=== PATIENT | female | born 1980 | race Hispanic/Latino ===

== ENCOUNTER 2022-04-18 15:23 | Inpatient (IN) | payer OTHER ==
[~2022-04-18] VITALS: Ht 162.6 cm; Wt 76.4 kg
[2022-04-18] MEDS ORDERED: MORPHINE 4 MG SYG IVP ONE (16:00)
[2022-04-18] MEDS ORDERED: ONDANSETRON 4MG INJ IVP ONE (16:00)
[2022-04-18] MEDS ORDERED: ZOSYN 3.375GM +NS 50ML IV SCH (16:00)
[2022-04-18] MEDS ORDERED: VANCOMYCIN 1G VIAL IVPB ONE (16:00)
[2022-04-18] MEDS ORDERED: VANCOMYCIN 1G/250ML KIT 250 ML IV ONE (16:09)
[2022-04-18 16:15] LABS: BASOPHILS % (AUTO) 0.3 % (0.0-5.0); EOSINOPHILS % (AUTO) 0.3 % (0.0-8.0); HEMATOCRIT 40.6 % (36-48); LYMPHOCYTES % (AUTO) 12.8 % (21.0-51.0); MEAN CORPUSCULAR HEMOGLOBIN 30.1 pg (27.0-33.0); MEAN CORPUSCULAR HGB CONC 35.5 g/dL (32.0-36.0); MEAN CORPUSCULAR VOLUME 84.8 fL (79-99); MONOCYTES % (AUTO) 7.6 % (3.0-13.0); NEUTROPHILS % (AUTO) 78.2 % (40.0-77.0); PLATELET COUNT (AUTO) 242 K/uL (130-400); RED BLOOD CELL COUNT(AUTO) 4.79 MIL/uL (4.00-5.50); RED CELL DISTRIBUTION WIDTH 11.8 % (11.0-15.5); WHITE BLOOD COUNT (AUTO) 14.2 K/uL (4.8-10.8)
[2022-04-18 16:18] LABS: APPEARANCE,URINE Clear (CLEAR); BILIRUBIN,URINE Negative (NEGATIVE); COLOR,URINE Yellow (YELLOW); GLUCOSE, URINE (UA) >=1000 mg/dL (NEGATIVE); KETONES,URINE >=160 mg/dL (NEGATIVE); LEUKOCYTE ESTERASE ,URINE Negative (NEGATIVE); NITRATE,URINE Negative (NEGATIVE); OCCULT BLOOD,URINE Negative (NEGATIVE); PH,URINE 5.5 (5.0-8.0); PROTEIN,URINE Negative (NEGATIVE); UROBILINOGEN,URINE 0.2 mg/dL (0.2-1.0)
[2022-04-18] MEDS ORDERED: INSULIN HUMULIN R 100 UNIT/ML 3ML SQ ONE (16:30)
[2022-04-18] MEDS ORDERED: 0.9%NACL 1000ML 1,000 ML IV SCH (16:30)
[2022-04-18 16:42] LABS: ALBUMIN 3.4 g/dL (3.5-5.0); CREATININE 0.8 mg/dL (0.5-1.5); POTASSIUM 3.1 mmol/L (3.5-5.1); TOTAL PROTEIN, SERUM 8.4 g/dL (6.0-8.3)
[2022-04-18] MEDS ORDERED: IOHEXOL 350 MG/ML 100ML INFUS..BTL IV ONE (16:57)
[2022-04-18 17:01] LABS: CRP QUANTITATIVE 185.7 mg/L (0.00-9.0)
[2022-04-18 17:21] LABS: BACTERIA,URINE Few /HPF (None Seen); RBC,URINE 0-1 /HPF (0-1); SQUAMOUS EPITHELIAL CELL,UR Moderate /HPF (0-2)
[2022-04-18] MEDS: 0.9%NACL 1000ML 1,000 ML IV SCH (18:00)
[2022-04-18] MEDS ORDERED: MORPHINE 2 MG SYG IV PRN (20:00)
[2022-04-18] MEDS: VANCOMYCIN 1G/250ML KIT 250 ML IV SCH (20:00)
[2022-04-18] MEDS ORDERED: VANCOMYCIN PROTOCOL PER PHARMACY IV PRN (20:00)
[2022-04-18] MEDS: ZOSYN 3.375GM+NS 50ML 50 ML IV SCH (20:30)
[2022-04-18] MEDS: LACTATED RINGERS 1000ML 1,000 ML IV SCH (21:35)
[2022-04-18] MEDS: FAMOTIDINE 20MG VIAL IV SCH (21:35)
[2022-04-18] MEDS: MORPHINE 4 MG SYG IV PRN (21:40)
[2022-04-18] MEDS ORDERED: POTASSIUM CHLORIDE 10% ELIXIR 20 MEQ/15 ML UDCUP PO PRN (23:00)
[2022-04-18] MEDS ORDERED: POTASSIUM CHLORIDE 20MEQ/100ML 100 ML IV PRN (23:00)
[2022-04-18] MEDS ORDERED: LIDOCAINE HCL-MPF 1% 2ML VIAL IV PRN (23:00)
[2022-04-19] MEDS: 0.9%NACL 1000ML 1,000 ML IV SCH (02:00)
[2022-04-19 05:12] LABS: BASOPHILS % (AUTO) 0.3 % (0.0-5.0); EOSINOPHILS % (AUTO) 0.8 % (0.0-8.0); LYMPHOCYTES % (AUTO) 15.8 % (21.0-51.0); MEAN CORPUSCULAR HEMOGLOBIN 29.7 pg (27.0-33.0); MEAN CORPUSCULAR HGB CONC 34.7 g/dL (32.0-36.0); MEAN CORPUSCULAR VOLUME 85.6 fL (79-99); MONOCYTES % (AUTO) 9.1 % (3.0-13.0); NEUTROPHILS % (AUTO) 73.4 % (40.0-77.0); PLATELET COUNT (AUTO) 217 K/uL (130-400); RED BLOOD CELL COUNT(AUTO) 4.44 MIL/uL (4.00-5.50); RED CELL DISTRIBUTION WIDTH 11.9 % (11.0-15.5); WHITE BLOOD COUNT (AUTO) 15.6 K/uL (4.8-10.8)
[2022-04-19] MEDS: ZOSYN 3.375GM+NS 50ML 50 ML IV SCH ×3 (05:19→20:52)
[2022-04-19 05:23] LABS: INR 1.07 (0.85-1.15); PROTHROMBIN TIME 11.6 SEC (9.6-11.6)
[2022-04-19 05:25] LABS: PARTIAL THROMBOPLASTIN TIME 27.2 SEC (26.3-35.5)
[2022-04-19 05:29] LABS: CREATININE 0.6 mg/dL (0.5-1.5); MAGNESIUM 1.7 mg/dL (1.80-2.40); PHOSPHORUS 2.8 mg/dL (2.5-4.9); POTASSIUM 3.7 mmol/L (3.5-5.1)
[2022-04-19 05:37] LABS: HEMOGLOBIN A1C 10.9 % (4.0-6.0)
[2022-04-19] MEDS: VANCOMYCIN 1G/250ML KIT 250 ML IV SCH (08:00)
[2022-04-19] MEDS: FAMOTIDINE 20MG VIAL IV SCH ×2 (08:00→20:53)
[2022-04-19] MEDS ORDERED: GLUCAGON 1MG KIT 1 MG ML IM PRN (09:00)
[2022-04-19] MEDS: LACTATED RINGERS 1000ML 1,000 ML IV SCH ×2 (09:00→16:00)
[2022-04-19] MEDS ORDERED: DEXTROSE 50%-WATER 50 ML DISP.SYRIN IV PRN (09:00)
[2022-04-19] MEDS: MORPHINE 4 MG SYG IV PRN (11:18)
[2022-04-19 12:33] VITALS: BP 102/44
[2022-04-19] MEDS: INSULIN HUMULIN R 100 UNIT/ML 3ML SQ SCH ×3 (14:27→23:43)
[2022-04-19] MEDS ORDERED: IBUP-2077 PO (14:46)
[2022-04-19 16:16] VITALS: BP 121/57
[2022-04-19] MEDS: ONDANSETRON 4MG INJ IV PRN ×2 (16:20→20:52)
[2022-04-19 19:00] VITALS: BP 120/59
[2022-04-19] MEDS: VANCOMYCIN 1.5 GM/250 ML BAG 250 ML IV SCH (20:53)
[2022-04-20] VITALS: BP 113/60
[2022-04-20 04:00] VITALS: BP 108/58
[2022-04-20] MEDS: VANCOMYCIN 1.5 GM/250 ML BAG 250 ML IV SCH ×2 (05:19→14:30)
[2022-04-20] MEDS: ZOSYN 3.375GM+NS 50ML 50 ML IV SCH ×3 (05:19→21:40)
[2022-04-20] MEDS: LACTATED RINGERS 1000ML 1,000 ML IV SCH ×3 (05:20→22:00)
[2022-04-20] MEDS: ONDANSETRON 4MG INJ IV PRN (05:32)
[2022-04-20] MEDS: MORPHINE 4 MG SYG IV PRN ×2 (05:33→21:37)
[2022-04-20 05:59] LABS: BASOPHILS % (AUTO) 0.3 % (0.0-5.0); EOSINOPHILS % (AUTO) 0.2 % (0.0-8.0); HEMATOCRIT 36.4 % (36-48); LYMPHOCYTES % (AUTO) 19.4 % (21.0-51.0); MEAN CORPUSCULAR HEMOGLOBIN 29.8 pg (27.0-33.0); MEAN CORPUSCULAR HGB CONC 34.6 g/dL (32.0-36.0); MEAN CORPUSCULAR VOLUME 86.1 fL (79-99); MONOCYTES % (AUTO) 8.3 % (3.0-13.0); NEUTROPHILS % (AUTO) 70.9 % (40.0-77.0); PLATELET COUNT (AUTO) 238 K/uL (130-400); RED BLOOD CELL COUNT(AUTO) 4.23 MIL/uL (4.00-5.50); RED CELL DISTRIBUTION WIDTH 11.9 % (11.0-15.5); WHITE BLOOD COUNT (AUTO) 16.6 K/uL (4.8-10.8)
[2022-04-20] MEDS: INSULIN HUMULIN R 100 UNIT/ML 3ML SQ SCH ×2 (06:00→12:00)
[2022-04-20 06:05] LABS: CREATININE 0.6 mg/dL (0.5-1.5)
[2022-04-20] MEDS: LIDOCAINE HCL-MPF 1% 2ML VIAL IV PRN (07:05)
[2022-04-20] MEDS: POTASSIUM CHLORIDE 20MEQ/100ML 100 ML IV PRN (07:05)
[2022-04-20 07:45] VITALS: BP 110/53
[2022-04-20] MEDS: FAMOTIDINE 20MG VIAL IV SCH ×2 (10:22→21:37)
[2022-04-20 11:40] VITALS: BP 128/73
[2022-04-20 15:35] VITALS: BP 142/74
[2022-04-20 19:00] VITALS: BP 134/69
[2022-04-20] MEDS ORDERED: VANCOMYCIN 750MG VIAL IVPB SCH (20:00)
[2022-04-20] MEDS ORDERED: 0.9% NACL 250ML 250 ML IV SCH (20:00)
[2022-04-21] VITALS (27 sets, daily range): BP systolic 97–154; BP diastolic 44–84
[2022-04-21] MEDS ORDERED: MIDAZOLAM HCL 1 MG/ML 2ML VIAL ONE (00:11)
[2022-04-21] MEDS ORDERED: PROPOFOL 10 MG/ML 20ML VIAL IV ONE (00:11)
[2022-04-21] MEDS ORDERED: FENTANYL CITRATE PF 50 MCG/1 ML 2ML VIAL ONE (00:11)
[2022-04-21] MEDS ORDERED: SUCCINYLCHOLINE 200MG/10ML SYR ONE (00:11)
[2022-04-21] MEDS ORDERED: ROCURONIUM 10MG/1ML SYR 10 MG/ML ML ONE (00:11)
[2022-04-21] MEDS ORDERED: MEPERIDINE-PF 25 MG/ML SYG ONE ×3 (00:18→01:36)
[2022-04-21] MEDS ORDERED: ONDANSETRON 4MG INJ ONE (00:19)
[2022-04-21 05:13] LABS: BASOPHILS % (AUTO) 0.4 % (0.0-5.0); EOSINOPHILS % (AUTO) 0.1 % (0.0-8.0); LYMPHOCYTES % (AUTO) 10.6 % (21.0-51.0); MEAN CORPUSCULAR HEMOGLOBIN 30.1 pg (27.0-33.0); MEAN CORPUSCULAR HGB CONC 34.1 g/dL (32.0-36.0); MEAN CORPUSCULAR VOLUME 88.5 fL (79-99); MONOCYTES % (AUTO) 8.9 % (3.0-13.0); PLATELET COUNT (AUTO) 238 K/uL (130-400); RED BLOOD CELL COUNT(AUTO) 4.18 MIL/uL (4.00-5.50); RED CELL DISTRIBUTION WIDTH 11.9 % (11.0-15.5); WHITE BLOOD COUNT (AUTO) 16.7 K/uL (4.8-10.8)
[2022-04-21] MEDS: ZOSYN 3.375GM+NS 50ML 50 ML IV SCH ×3 (05:27→23:14)
[2022-04-21 05:36] LABS: CREATININE 0.5 mg/dL (0.5-1.5); POTASSIUM 3.9 mmol/L (3.5-5.1)
[2022-04-21] MEDS: INSULIN HUMULIN R 100 UNIT/ML 3ML SQ SCH ×5 (05:56→21:00)
[2022-04-21] MEDS: LACTATED RINGERS 1000ML 1,000 ML IV SCH ×2 (08:00→17:45)
[2022-04-21] MEDS ORDERED: VANCOMYCIN 1.75GM/250ML NS IV SCH ×2 (08:30)
[2022-04-21] MEDS: FAMOTIDINE 20MG VIAL IV SCH ×2 (10:08→23:19)
[2022-04-21] MEDS: MORPHINE 4 MG SYG IV PRN (10:08)
[2022-04-21] MEDS: ONDANSETRON 4MG INJ IV PRN ×2 (17:57→23:19)
[2022-04-21] MEDS: VANCOMYCIN 1G/250ML KIT 250 ML IV SCH (23:19)
[2022-04-22] VITALS: BP 142/68
[2022-04-22 04:00] VITALS: BP 124/63
[2022-04-22] MEDS: LACTATED RINGERS 1000ML 1,000 ML IV SCH (04:00)
[2022-04-22] MEDS: ZOSYN 3.375GM+NS 50ML 50 ML IV SCH ×2 (04:54→12:32)
[2022-04-22 05:12] LABS: BASOPHILS % (AUTO) 0.4 % (0.0-5.0); EOSINOPHILS % (AUTO) 0.5 % (0.0-8.0); HEMATOCRIT 35.2 % (36-48); LYMPHOCYTES % (AUTO) 21.5 % (21.0-51.0); MEAN CORPUSCULAR HEMOGLOBIN 29.2 pg (27.0-33.0); MEAN CORPUSCULAR HGB CONC 34.4 g/dL (32.0-36.0); MEAN CORPUSCULAR VOLUME 84.8 fL (79-99); MONOCYTES % (AUTO) 8.4 % (3.0-13.0); NEUTROPHILS % (AUTO) 68.3 % (40.0-77.0); PLATELET COUNT (AUTO) 268 K/uL (130-400); RED BLOOD CELL COUNT(AUTO) 4.15 MIL/uL (4.00-5.50); RED CELL DISTRIBUTION WIDTH 11.9 % (11.0-15.5); WHITE BLOOD COUNT (AUTO) 12.9 K/uL (4.8-10.8)
[2022-04-22] MEDS: INSULIN HUMULIN R 100 UNIT/ML 3ML SQ SCH ×3 (05:32→17:59)
[2022-04-22] MEDS: VANCOMYCIN 1G/250ML KIT 250 ML IV SCH (05:44)
[2022-04-22 05:45] LABS: CREATININE 0.5 mg/dL (0.5-1.5)
[2022-04-22 05:52] LABS: POTASSIUM 2.9 mmol/L (3.5-5.1)
[2022-04-22] MEDS: KCL 20 MEQ ERTAB PO PRN ×4 (06:33→15:11)
[2022-04-22 08:00] VITALS: BP 125/71
[2022-04-22] MEDS: FAMOTIDINE 20MG VIAL IV SCH (08:05)
[2022-04-22 12:00] VITALS: BP 116/63
[2022-04-22] MEDS ORDERED: AMOX1TAB16 PO (13:19)
[2022-04-22] MEDS ORDERED: METF-446 PO (13:21)
[2022-04-22] MEDS: POTASSIUM CHLORIDE 20MEQ/100ML 100 ML IV PRN (15:12)
[2022-04-22] MEDS: LIDOCAINE HCL-MPF 1% 2ML VIAL IV PRN (15:12)
[2022-04-22 16:00] VITALS: BP 127/80
== END 2022-04-22 21:00 | disposition home or self-care (01) | DRG 345 ==
LOC: EDH 15:23 → EDHIP 15:24 → 3DH 04-19 08:52
PROVIDERS: ADMIT Internal Medicine; ATTEND Internal Medicine
PROC: 0D9P0ZZ Drainage of Rectum, Open Approach (ICD-10-PCS; principal; 2022-04-21 00:53)
DX: K61.1 Rectal abscess (principal); L02.31 Cutaneous abscess of buttock; E11.9 Type 2 diabetes mellitus without complications; Z20.822 Contact with and (suspected) exposure to COVID-19
CPT/HCPCS: 36415; 74177; 80048; 80053; 80202; 81001; 81025; 82010; 82948; 83036; 83605; 83735; 84100; 84132; 84484; 84702; 85025; 85610; 85730; 86140; 86850; 86900; 86901; 87040; 87070; 87076; 87077; 87186; 87205; 87635; 93005; C9803; G0378; J0330; J1815; J2175; J2250; J2270; J2405; J2543; J2704; J3010; J3370; J3480; J3490; J7050; J7120; Q9967